=== PATIENT | male | born 1970 | race Two or more races ===

== ENCOUNTER 2020-06-24 00:18 | Emergency (ER) | payer BC, OTHER ==
[~2020-06-24] VITALS: Ht 170.2 cm; Wt 100.8 kg
--- NOTE | 2020-06-24 00:45 | NUR ---
PT HERE FOR FEVER, CHILLS, BODY ACHES, DIAPHOESIS. PT STATES HE GOT HIS COVID VACCINE, BOTH SHOTS, LAST ONE 06/11/2020. PT DENIES CP, SOB, AND ONLY HISTORY OF HTN. PT TOOK TYLENOL AT 1800 AND STATES FEELING BETTER SINCE THEN. RESP EVEN/UNLABORED, SPEAKING FULL SENTENCES. AWAITING ERP EVAL
[2020-06-24] MEDS ORDERED: IBUPROFEN 800 MG TABLET ONE (00:54)
[2020-06-24] MEDS ORDERED: SODIUM CHLORIDE FLUSH 10ML SYR IVF ONE (01:00)
[2020-06-24] MEDS ORDERED: SODIUM CHLORIDE 0.9% 1,000ML IVBOLUS ONE (01:00)
[2020-06-24] MEDS ORDERED: IBUPROFEN 800 MG TABLET PO ONE (01:00)
[2020-06-24 01:11] LABS: BASOPHILS % (AUTO) 0 % (0-1); EOSINOPHILS % (AUTO) 4 % (1-7); LYMPHOCYTES % (AUTO) 3 % (22-44); MD NO; MEAN CORPUSCULAR HEMOGLOBIN 31.6 pg (27.5-34.5); MEAN CORPUSCULAR HGB CONC 35.1 g/dL (33.2-36.2); MEAN PLATELET VOLUME 8.4 fL (7.4-10.4); MONOCYTES % (AUTO) 15 % (2-9); NEUTROPHILS % (AUTO) 79 % (42-75); PLATELET COUNT 167 x10^3/uL (130-400); RED BLOOD COUNT 4.98 x10^6/uL (4.38-5.82); RED CELL DISTRIBUTION WIDTH 13.4 % (9.4-14.8)
[2020-06-24 01:20] LABS: ALANINE AMINOTRANSFERASE 107 U/L (12-78); ANION GAP 6 mmol/L (5-15); CALCIUM 8.2 mg/dL (8.5-10.1); CHLORIDE 106 mmol/L (98-107); CREATININE 1.05 mg/dL (0.7-1.3)
[2020-06-24 01:23] LABS: ALKALINE PHOSPHATASE 92 U/L (45-117); BILIRUBIN,TOTAL 0.5 mg/dL (0.2-1.0)
[2020-06-24 01:44] LABS: RAPID INFLUENZA A Negative (Negative); RAPID INFLUENZA B Negative (Negative)
[2020-06-24 02:19] VITALS: BP 121/79
--- NOTE | 2020-06-24 02:52 | NUR ---
Patient given discharge instructions and they have confirmed that they understand the instructions. Patient ambulatory with steady gait. PT GOING HOME WITH AND DAUGHTER
== END 2020-06-24 02:55 | disposition home or self-care (01) ==
LOC: ED 02:52
DX: B34.9 Viral infection, unspecified (principal); Z20.822 Contact with and (suspected) exposure to COVID-19; R00.0 Tachycardia, unspecified; R50.9 Fever, unspecified; M79.10 Myalgia, unspecified site; I10 Essential (primary) hypertension
CPT/HCPCS: 36415; 71045; 80053; 83690; 85025; 87400; 96360; 96361; 99284; J7030; U0003